=== PATIENT | female | born 1985 | race Caucasian/White ===

== ENCOUNTER 2024-02-18 08:55 | Emergency (ER) | payer SELFPAY ==
[2024-02-18 09:02] VITALS: BP 136/92; PULSE 98; RESP 18; TEMP 36.6; O2SAT 100
[2024-02-18 19:41] LABS: Trichomonas Vag PCR NOT DETECTED (NOT DETECTE)
[2024-02-18 20:08] LABS: Chlamydia trachomatis NOT DETECTED (NOT DETECTE); Neisseria gonorrhoeae PCR NOT DETECTED (NOT DETECTE)
--- NOTE | 2024-02-21 12:49 | ED.FEMALEGU ---
HPI - Female Genitourinary General Chief complaint: Urogenital-Female Stated complaint: STD Exposure Time Seen by Provider: 02/18/24 09:15 Source: patient Mode of arrival: ambulatory Limitations: no limitations History of Present Illness HPI Narrative: 38-year-old female here for STI testing. Patient reports no symptoms. Was seen at a urgent care last week and was told testing was inconclusive because she was on her period. Was given Flagyl because of concern for bacterial vaginosis. Patient would like testing today for gonorrhea and chlamydia. All systems reviewed and negative except as noted above. Related Data Home Medications Medication Instructions Recorded Confirmed bupropion HCl 150 mg 24 hr tablet, mg PO 02/18/24 extended release doxepin 50 mg capsule mg 02/18/24 fluconazole 150 mg tablet mg 02/18/24 fluoxetine 40 mg capsule mg 02/18/24 hydroxyzine pamoate 50 mg capsule mg 02/18/24 lisinopril 5 mg tablet mg 02/18/24 metronidazole 500 mg tablet mg 02/18/24 prednisone 20 mg tablet mg 02/18/24 topiramate 100 mg tablet mg 02/18/24 valacyclovir 1 gram tablet mg 02/18/24 Allergies Allergy/AdvReac Type Severity Reaction Status Date / Time No Known Allergies Allergy Verified 02/18/24 09:09 Review of Systems Review of Systems: CONSTITUTIONAL: Denies fever, chills, or sweats. EYES: Denies visual changes, redness, or discharge. ENT: Denies rhinorrhea, congestion, sore throat, or otalgia. CARDIOVASCULAR: Denies chest pain, palpitations, or edema. RESPIRATORY: Denies cough or dyspnea. GASTROINTESTINAL: Denies abdominal pain, nausea, vomiting, or diarrhea. GENITOURINARY: Denies dysuria or hematuria. SKIN: Denies rash or itching. MUSCULOSKELETAL: Denies back pain, joint pain, or myalgia. NEUROLOGIC: Denies headache, numbness, or weakness. PSYCHIATRIC: Denies anxiety or depression. All other systems reviewed are negative, except as documented in HPI. PMFSH Comments At time of signature, agree with nursing past medical, surgical, social and family history. There is no relevant family history pertinent to the presenting complaint. Exam Narrative: GENERAL: This is a well-nourished, well-developed patient, in no apparent distress. HEAD: normocephalic, atraumatic. EYES: PERRL. Sclera clear/white. Vision is grossly intact. EARS: External ears normal NOSE: External nose normal NECK: Neck supple, non-tender without lymphadenopathy, masses or thyromegaly. CARDIOVASCULAR: Regular rate and rhythm without murmurs, gallops, or rubs. RESPIRATORY: Clear to auscultation. Breath sounds equal bilaterally. No wheezes, rales, or rhonchi. SKIN: warm, Dry, intact with no suspicious lesions or rash, good texture and turgor. NEURO: awake, alert, and oriented to person, place and time. There were no obvious focal neurologic abnormalities. EXTREMITIES: No joint tenderness, effusion, or edema noted. No calf tenderness. Negative Homans sign bilaterally. BACK: Nontender without deformity. No CVA tenderness. Course Course Level of Care: Express Care Visit Vital Signs Vital signs: Vital Signs Temperature 36.6 C 02/18/24 09:02 Pulse Rate 98 02/18/24 09:02 Respiratory Rate 18 02/18/24 09:02 Blood Pressure 136/92 H 02/18/24 09:02 Pulse Oximetry 100 02/18/24 09:02 Oxygen Delivery Room Air 02/18/24 09:02 Temperature 36.6 C 02/18/24 09:02 Pulse Rate 98 02/18/24 09:02 Respiratory Rate 18 02/18/24 09:02 Blood Pressure 136/92 H 02/18/24 09:02 Pulse Oximetry 100 02/18/24 09:02 Oxygen Delivery Room Air 02/18/24 09:02 Reviewed MDM - Female Genitourinary MDM Narrative Medical decision making narrative: Patient on Flagyl for bacterial vaginosis. Gonorrhea, chlamydia and Trichomonas testing ordered. Will wait for results prior to treating with antibiotics. Patient agrees with plan of care. Patient is aware of diagnosis, understands and agrees to treatment plan. Antic
== END 2024-02-18 09:23 | disposition home or self-care (01) ==
PROVIDERS: Emergency Provider Nurse Practitioner Family; PCP Nurse Practitioner
DX: Z20.2 Contact with and (suspected) exposure to infections with a predominantly sexual mode of transmission (principal); I10 Essential (primary) hypertension
CPT/HCPCS: 87491; 87591; 87661; 99214; G0463